=== PATIENT | female | born 1945 | race Caucasian/White ===

== ENCOUNTER 2021-01-15 19:51 | Inpatient (IN) | payer MEDICARE, OTHER ==
[~2021-01-15] VITALS: Ht 160 cm; Wt 85.6 kg
[2021-01-15 21:45] LABS: Basophils # (auto) 0.1 10 ^3/uL (0-0.2); Basophils % (auto) 0.8 % (0.0-2.0); Eosinophils # (auto) 0.3 10 ^3/uL (0-0.8); Eosinophils % (auto) 3.6 % (0.0-7.0); Hematocrit 45.6 % (36.0-46.0); Hemoglobin 15.8 g/dL (12.2-16.2); Lymphocytes # (auto) 2.5 10 ^3/uL (0.4-5.4); Lymphocytes % (auto) 32.7 % (10.0-50.0); Mean Corpuscular Hemoglobin 31.5 pg (28.0-32.0); Mean Corpuscular Hgb Conc. 34.7 g/dL (32.0-36.0); Mean Corpuscular Volume 90.6 fL (80.0-100.0); Monocytes # (auto) 0.5 10 ^3/uL (0-1.3); Monocytes % (auto) 7.1 % (0.0-12.0); Neutrophils # (auto) 4.3 10 ^3/uL (1.6-8.6); Neutrophils % (auto) 55.8 % (37.0-80.0); Nucleated Red Blood Cells % 0.1 %; Platelet Count (auto) 199 10^3/uL (140-450); Red Blood Cells 5.04 10^6/uL (4.0-5.20); Red Cell Distribution Width 13.1 % (11.8-14.3); White Blood Cell 7.6 10^3/uL (4.4-10.8)
[2021-01-15 21:55] LABS: Urine Bacteria NONE SEEN /hpf (None Seen); Urine Blood Negative /uL (Negative); Urine Specific Gravity 1.005 (1.001-1.035); Urine WBC 7 /hpf (0 - 5); Urine WBC Clumps PRESENT /hpf (None Seen)
[2021-01-15 22:00] LABS: INR 0.94 (0.9-1.15); Partial Thromboplastin Time 25.4 sec (23.0-31.2)
[2021-01-15 22:10] LABS: Albumin 3.8 g/dL (3.4-5.0); Anion Gap 9 (5-15); Blood Urea Nitrogen 7 mg/dL (7-18); Calcium 8.5 mg/dL (8.5-10.1); Carbon Dioxide 23 mmol/L (21-32); Chloride 109 mmol/L (98-107); Glucose 121 mg/dL (74-106); Magnesium 2.3 mg/dL (1.6-2.6); Potassium 3.9 mmol/L (3.5-5.1); Sodium 141 mmol/L (136-145)
[2021-01-15 22:16] LABS: Alanine Aminotransferase 31 U/L (13-56); Alkaline Phosphatase 74 U/L (45-117); Aspartate Aminotransferase 22 U/L (15-37); Bilirubin, Total 0.6 mg/dL (0.2-1.0); GFR African American 105 mL/min; GFR Non-African American 87 mL/min; Total Protein 7.6 g/dL (6.4-8.2)
[2021-01-16] MEDS ORDERED: ASPirin-EC 325mg tab PO ONE
[2021-01-16] MEDS ORDERED: levoFLOXacin 750MG 150 ML IV ONE
[2021-01-16] MEDS ORDERED: NITROGLYCERIN 0.4 MG SL TAB SL PRN (01:30)
[2021-01-16] MEDS ORDERED: ONDANSETRON HCL 4 MG/2 ML VIAL IV PRN (01:30)
[2021-01-16] MEDS ORDERED: hydrALAZINE HCL 20 MG/ML VL IV PRN (01:30)
[2021-01-16] MEDS ORDERED: DOCUSATE SOD 100 MG CAP PO PRN (01:30)
[2021-01-16 01:56] LABS: INR 0.94 (0.9-1.15)
[2021-01-16 05:00] VITALS: BP_SYST 122; BP_SYST 150; BP_DIAS 55; BP_DIAS 78
[2021-01-16] MEDS ORDERED: ASPI-717 PO (05:14)
[2021-01-16] MEDS: SODIUM CHLOR 0.9% PF (SALINE LOCK) 10ML VIAL/SYR IV SCH ×3 (07:12→22:00)
[2021-01-16 07:30] VITALS: BP 154/60
[2021-01-16 09:00] VITALS: BP 154/60
[2021-01-16] MEDS: levoFLOXacin 500MG 100 ML IV SCH ×2 (09:54→10:00)
[2021-01-16] MEDS: MULTIPLE VITAMIN TAB PO SCH (09:55)
[2021-01-16] MEDS: ASPirin 81 mg TAB PO SCH (09:55)
[2021-01-16] MEDS: ZINC SULFATE 220mg CAP or TAB PO SCH (09:55)
[2021-01-16] MEDS: FAMOTIDINE 20 MG TAB PO SCH ×3 (09:55→22:00)
[2021-01-16] MEDS: ASCORBIC ACID 500 MG TAB PO SCH ×2 (09:56→22:00)
[2021-01-16] MEDS: ENOXAPARIN SOD 40 MG/0.4 ML SYRINGE SC SCH ×2 (09:58→10:00)
[2021-01-16] MEDS ORDERED: ASPirin 81 mg TAB PO SCH (10:00)
[2021-01-16 13:00] VITALS: BP 156/72
[2021-01-16 16:39] VITALS: BP 149/76
[2021-01-16 20:12] LABS: Cholesterol 183 mg/dL (< 200); HDL Cholesterol 52 mg/dL (40-59); LDL Cholesterol 116 mg/dL (< 100); Triglycerides 144 mg/dL (< 150)
[2021-01-16] MEDS: ACETAMINOPHEN 325 MG TAB PO PRN (20:32)
[2021-01-16 22:00] VITALS: BP 148/73
[2021-01-16] MEDS ORDERED: ATORVASTATIN 20 MG TAB PO SCH (22:00)
[2021-01-17 05:00] VITALS: BP 147/83
[2021-01-17 05:11] LABS: Basophils # (auto) 0.1 10 ^3/uL (0-0.2); Basophils % (auto) 1.1 % (0.0-2.0); Eosinophils # (auto) 0.3 10 ^3/uL (0-0.8); Hematocrit 44.4 % (36.0-46.0); Hemoglobin 15.9 g/dL (12.2-16.2); Lymphocytes # (auto) 2.5 10 ^3/uL (0.4-5.4); Lymphocytes % (auto) 40.1 % (10.0-50.0); Mean Corpuscular Hemoglobin 32.2 pg (28.0-32.0); Mean Corpuscular Hgb Conc. 35.9 g/dL (32.0-36.0); Mean Corpuscular Volume 89.9 fL (80.0-100.0); Monocytes # (auto) 0.5 10 ^3/uL (0-1.3); Monocytes % (auto) 7.6 % (0.0-12.0); Neutrophils # (auto) 2.9 10 ^3/uL (1.6-8.6); Neutrophils % (auto) 46.2 % (37.0-80.0); Nucleated Red Blood Cells % 0.1 %; Platelet Count (auto) 182 10^3/uL (140-450); Red Blood Cells 4.94 10^6/uL (4.0-5.20); Red Cell Distribution Width 13.5 % (11.8-14.3); White Blood Cell 6.3 10^3/uL (4.4-10.8)
[2021-01-17 05:30] LABS: Albumin 3.6 g/dL (3.4-5.0); Calcium 8.2 mg/dL (8.5-10.1); Potassium 3.9 mmol/L (3.5-5.1)
[2021-01-17 05:34] LABS: BUN/Creatinine Ratio 14.1; Bilirubin, Total 0.8 mg/dL (0.2-1.0); Total Protein 7.3 g/dL (6.4-8.2)
[2021-01-17] MEDS: SODIUM CHLOR 0.9% PF (SALINE LOCK) 10ML VIAL/SYR IV SCH ×2 (06:00→14:07)
[2021-01-17 09:00] VITALS: BP 154/68
[2021-01-17] MEDS: levoFLOXacin 500MG 100 ML IV SCH (10:00)
[2021-01-17] MEDS: FAMOTIDINE 20 MG TAB PO SCH (10:00)
[2021-01-17] MEDS: ZINC SULFATE 220mg CAP or TAB PO SCH (10:00)
[2021-01-17] MEDS: ENOXAPARIN SOD 40 MG/0.4 ML SYRINGE SC SCH (10:00)
[2021-01-17] MEDS: MULTIPLE VITAMIN TAB PO SCH (10:00)
[2021-01-17] MEDS: ASCORBIC ACID 500 MG TAB PO SCH (10:00)
[2021-01-17] MEDS: ASPirin 81 mg TAB PO SCH (10:02)
[2021-01-17] MEDS: ACETAMINOPHEN 325 MG TAB PO PRN (12:21)
[2021-01-17 13:00] VITALS: BP 142/68
[2021-01-17] MEDS ORDERED: amLODIPine BESYLATE 5 MG TAB PO ONE (14:45)
[2021-01-17] MEDS ORDERED: ATOR10TA PO (14:46)
[2021-01-17] MEDS ORDERED: ASPI-378 PO (14:46)
[2021-01-17] MEDS ORDERED: AML5T PO (15:07)
[2021-01-17] MEDS ORDERED: LEVO500T31 PO (15:48)
[2021-01-17 16:45] VITALS: BP 160/65
[2021-01-17 17:19] VITALS: BP 142/68
== END 2021-01-17 18:26 | disposition home health service (06) | DRG 69 ==
LOC: ER 19:55 → TELE-WESTW 01-16 01:27 → ER 01-16 03:04
PROVIDERS: ADMIT Nurse Practitioner Family; ATTEND Internal Medicine
DX: G45.9 Transient cerebral ischemic attack, unspecified (principal); N39.0 Urinary tract infection, site not specified; E11.21 Type 2 diabetes mellitus with diabetic nephropathy; I10 Essential (primary) hypertension; Z20.822 Contact with and (suspected) exposure to COVID-19; Z88.5 Allergy status to narcotic agent; F17.200 Nicotine dependence, unspecified, uncomplicated; I25.10 Atherosclerotic heart disease of native coronary artery without angina pectoris; I25.2 Old myocardial infarction; Z79.899 Other long term (current) drug therapy; Z79.82 Long term (current) use of aspirin; Z80.0 Family history of malignant neoplasm of digestive organs; Z80.8 Family history of malignant neoplasm of other organs or systems; Z82.0 Family history of epilepsy and other diseases of the nervous system; Z82.3 Family history of stroke; Z82.49 Family history of ischemic heart disease and other diseases of the circulatory system; Z83.3 Family history of diabetes mellitus; Z85.43 Personal history of malignant neoplasm of ovary; Z85.528 Personal history of other malignant neoplasm of kidney; Z86.73 Personal history of transient ischemic attack (TIA), and cerebral infarction without residual deficits; Z90.710 Acquired absence of both cervix and uterus
CPT/HCPCS: 36415; 70450; 70551; 80053; 80061; 81001; 82962; 83036; 83735; 83880; 84443; 84484; 85025; 85049; 85610; 85730; 87086; 87426; 93306; 93886; 96365; 99291; G0378; J1956